=== PATIENT | female | born 1965 | race Caucasian/White ===

== ENCOUNTER 2018-05-10 18:43 | Inpatient (IN) | payer OTHER ==
[2018-05-10 19:48] LABS: ADD MAN DIFF? NO
[2018-05-10 19:51] LABS: WHITE BLOOD COUNT 13.1 10^3/ul (4.8-10.8)
[2018-05-10 19:51] LABS: BASOPHIL # 0.1 10^3/ul (0.0-0.1); BASOPHILS % 0.6 % (0.0-2.0); EOSINOPHILS # 0.1 10^3/ul (0.0-0.5); EOSINOPHILS % 0.8 % (0.0-7.0); HEMATOCRIT 34.6 % (37.0-47.0); HEMOGLOBIN 11.7 g/dl (12.0-16.0); LYMPHOCYTES % 7.9 % (15.0-51.0); MEAN CORPUSCULAR HGB CONC 33.8 g/dl (32.0-37.0); MEAN CORPUSCULAR VOLUME 85.6 fl (82.0-101.0); MEAN PLATELET VOLUME 9.9 fl (7.4-10.4); MONOCYTE # 0.9 10^3/ul (0.3-0.9); MONOCYTES % 6.9 % (0.0-11.0); NEUTROPHIL # 10.9 10^3/ul (1.6-7.5); NEUTROPHILS % 83.3 % (39.0-77.0); PLATELET COUNT 312 10^3/UL (140-415); RED BLOOD COUNT 4.04 10^6/ul (4.20-5.40); RED CELL DISTRIBUTION WIDTH 12.5 % (11.5-14.5)
[2018-05-10 20:16] LABS: ANION GAP 13 (8-16); BLOOD UREA NITROGEN 11 mg/dl (7-20); CALCIUM 8.6 mg/dl (8.4-10.2); CARBON DIOXIDE 20 mmol/L (21-31); CHLORIDE 98 mmol/L (97-110); CREATININE 0.63 mg/dl (0.44-1.00); POTASSIUM 4.4 mmol/L (3.5-5.1); SODIUM 127 mmol/L (135-144)
[2018-05-10 20:24] LABS: GLUCOSE 526 mg/dl (70-220)
[2018-05-10] MEDS: HYDROCODONE/APAP (5/325) TAB PO (21:00)
[2018-05-10] MEDS: CLINDAMYCIN 900 MG/D5W (PMX) 50 ML IVPB (21:09)
[2018-05-10] MEDS: SOD CHLORIDE 0.9% 1,000 ML IV ×2 (21:11→21:36)
[2018-05-10] MEDS ORDERED: GLUCOSE GEL 15 GRAM TUBE PO ×2 (22:00)
[2018-05-10] MEDS ORDERED: GLUCOSE GEL 15 GRAM TUBE BUCCAL (22:00)
[2018-05-10] MEDS ORDERED: GLUCAGON 1 MG INJ IM (22:00)
[2018-05-10] MEDS ORDERED: DEXTROSE 50% 50 ML SYRINGE IV ×2 (22:00)
[2018-05-10] MEDS: INSULIN GLARGINE [LANTus] (100 UNITS/ML) SYG SC (23:10)
[2018-05-11] MEDS ORDERED: ONDANSETRON 4 MG INJ IV (01:00)
[2018-05-11] MEDS ORDERED: ACETAMINOPHEN 325 MG TAB PO (01:00)
[2018-05-11] MEDS ORDERED: VANCOMYCIN IV PER PHARMACY XX (01:00)
[2018-05-11] MEDS: SOD CHLORIDE 0.9% 1,000 ML IV ×2 (01:56→20:41)
[2018-05-11] MEDS: VANCOMYCIN 1.25 GM in SOD CHLORIDE 0.9% 250 ML IVPB (04:07)
[2018-05-11 05:31] LABS: ADD MAN DIFF? NO
[2018-05-11] MEDS: INSULIN ASPART [NOVOLOG] 3 ML PEN SC ×4 (05:34→17:39)
[2018-05-11 05:37] LABS: BASOPHIL # 0.1 10^3/ul (0.0-0.1); BASOPHILS % 0.6 % (0.0-2.0); EOSINOPHILS # 0.1 10^3/ul (0.0-0.5); EOSINOPHILS % 1.6 % (0.0-7.0); HEMATOCRIT 30.8 % (37.0-47.0); HEMOGLOBIN 10.6 g/dl (12.0-16.0); LYMPHOCYTES # 1.2 10^3/ul (0.8-2.9); MEAN CORPUSCULAR HEMOGLOBIN 29.4 pg (29.0-33.0); MEAN CORPUSCULAR HGB CONC 34.4 g/dl (32.0-37.0); MEAN CORPUSCULAR VOLUME 85.6 fl (82.0-101.0); MONOCYTE # 0.6 10^3/ul (0.3-0.9); MONOCYTES % 7.1 % (0.0-11.0); NEUTROPHIL # 6.7 10^3/ul (1.6-7.5); NEUTROPHILS % 76.2 % (39.0-77.0); PLATELET COUNT 292 10^3/UL (140-415); RED CELL DISTRIBUTION WIDTH 12.4 % (11.5-14.5)
[2018-05-11 05:37] LABS: WHITE BLOOD COUNT 8.7 10^3/ul (4.8-10.8)
[2018-05-11 06:10] LABS: ALANINE AMINOTRANSFERASE 14 IU/L (13-69); ALBUMIN 3.1 g/dl (3.3-4.9); ALBUMIN/GLOBULIN RATIO 1.03; ALKALINE PHOSPHATASE 69 IU/L (42-121); ANION GAP 11 (8-16); ASPARTATE AMINO TRANSFERASE 14 IU/L (15-46); BILIRUBIN,INDIRECT 0.4 mg/dl (0-1.1); BILIRUBIN,TOTAL 0.4 mg/dl (0.2-1.3); BLOOD UREA NITROGEN 9 mg/dl (7-20); CALCIUM 7.9 mg/dl (8.4-10.2); CARBON DIOXIDE 21 mmol/L (21-31); CHLORIDE 104 mmol/L (97-110); CREATININE 0.53 mg/dl (0.44-1.00); GLUCOSE 349 mg/dl (70-220); POTASSIUM 4.1 mmol/L (3.5-5.1); SODIUM 132 mmol/L (135-144); TOTAL PROTEIN 6.1 g/dl (6.1-8.1)
[2018-05-11] MEDS: PIPER-TAZO 3.375 GM IV (PMX) 100 ML IVPB ×3 (07:50→18:50)
[2018-05-11] MEDS ORDERED: BISACODYL 10 MG SUPP PR (11:30)
[2018-05-11] MEDS: DOCUSATE SODIUM 250 MG CAP PO (12:47)
[2018-05-11] MEDS: ENOXAPARIN 40 MG/0.4 ML SYG SC (12:49)
[2018-05-11] MEDS: VANCOMYCIN 1 GM 250 ML IVPB (16:28)
[2018-05-11] MEDS: Insulin NOVOLOG SS MILD Algorithm (SS with meals and bedtime) SC ×2 (17:38→20:40)
[2018-05-11] MEDS ORDERED: INSULIN ASPART [NOVOLOG] 3 ML PEN SC (18:05)
[2018-05-11] MEDS: INSULIN GLARGINE [LANTus] (100 UNITS/ML) SYG SC (20:40)
[2018-05-11] MEDS ORDERED: INSULIN GLARGINE [LANTus] (100 UNITS/ML) SYG SC (21:00)
[2018-05-12] MEDS: PIPER-TAZO 3.375 GM IV (PMX) 100 ML IVPB ×5 (00:35→23:30)
[2018-05-12] MEDS: ACCU-CHEK XX (02:00)
[2018-05-12] MEDS: VANCOMYCIN 1 GM 250 ML IVPB ×2 (03:18→16:07)
[2018-05-12] MEDS: PANTOPRAZOLE (EC) 40 MG TAB PO (05:24)
[2018-05-12] MEDS: SOD CHLORIDE 0.9% 1,000 ML IV ×2 (05:36→13:51)
[2018-05-12 06:42] LABS: ADD MAN DIFF? NO
[2018-05-12 06:47] LABS: BASOPHILS % 0.5 % (0.0-2.0); EOSINOPHILS # 0.3 10^3/ul (0.0-0.5); EOSINOPHILS % 3.3 % (0.0-7.0); HEMATOCRIT 30.1 % (37.0-47.0); HEMOGLOBIN 9.8 g/dl (12.0-16.0); LYMPHOCYTES # 2.2 10^3/ul (0.8-2.9); LYMPHOCYTES % 27.6 % (15.0-51.0); MEAN CORPUSCULAR HEMOGLOBIN 28.7 pg (29.0-33.0); MEAN CORPUSCULAR HGB CONC 32.6 g/dl (32.0-37.0); MEAN CORPUSCULAR VOLUME 88.3 fl (82.0-101.0); MEAN PLATELET VOLUME 9.8 fl (7.4-10.4); MONOCYTE # 0.8 10^3/ul (0.3-0.9); MONOCYTES % 9.8 % (0.0-11.0); NEUTROPHIL # 4.5 10^3/ul (1.6-7.5); NEUTROPHILS % 58.3 % (39.0-77.0); PLATELET COUNT 269 10^3/UL (140-415); RED BLOOD COUNT 3.41 10^6/ul (4.20-5.40); RED CELL DISTRIBUTION WIDTH 12.8 % (11.5-14.5)
[2018-05-12 06:47] LABS: WHITE BLOOD COUNT 7.8 10^3/ul (4.8-10.8)
[2018-05-12 07:17] LABS: ANION GAP 9 (8-16); BLOOD UREA NITROGEN 13 mg/dl (7-20); CALCIUM 7.7 mg/dl (8.4-10.2); CARBON DIOXIDE 22 mmol/L (21-31); CHLORIDE 107 mmol/L (97-110); GLUCOSE 284 mg/dl (70-220); POTASSIUM 4.3 mmol/L (3.5-5.1); SODIUM 134 mmol/L (135-144)
[2018-05-12] MEDS: DOCUSATE SODIUM 250 MG CAP PO (08:19)
[2018-05-12] MEDS: Insulin NOVOLOG SS MILD Algorithm (SS with meals and bedtime) SC ×2 (08:20→12:37)
[2018-05-12] MEDS: ENOXAPARIN 40 MG/0.4 ML SYG SC (08:21)
[2018-05-12] MEDS: INSULIN ASPART [NOVOLOG] 3 ML PEN SC ×5 (08:21→20:40)
[2018-05-12 15:40] LABS: VANCOMYCIN,TROUGH 8.9 ug/ml (10.0-20.0)
[2018-05-12] MEDS ORDERED: PENDING SANTYL ORDER FOR WOUND CARE XX (16:00)
[2018-05-12] MEDS ORDERED: COLLAGENASE 5 GM (UD JAR) TOP (16:00)
[2018-05-12] MEDS: COLLAGENASE 5 GM (UD JAR) TOP (16:07)
[2018-05-12] MEDS ORDERED: INSULIN ASPART [NOVOLOG] 3 ML PEN SC (18:05)
[2018-05-12] MEDS: INSULIN GLARGINE [LANTus] (100 UNITS/ML) SYG SC (20:39)
[2018-05-13] MEDS: ACCU-CHEK XX (02:45)
[2018-05-13] MEDS: VANCOMYCIN 1.25 GM in SOD CHLORIDE 0.9% 250 ML IVPB ×2 (05:06→15:49)
[2018-05-13] MEDS: PANTOPRAZOLE (EC) 40 MG TAB PO (05:17)
[2018-05-13] MEDS: PIPER-TAZO 3.375 GM IV (PMX) 100 ML IVPB ×3 (06:09→21:37)
[2018-05-13] MEDS: INSULIN ASPART [NOVOLOG] 3 ML PEN SC ×7 (08:10→20:47)
[2018-05-13] MEDS: ENOXAPARIN 40 MG/0.4 ML SYG SC (08:10)
[2018-05-13] MEDS: COLLAGENASE 5 GM (UD JAR) TOP (08:11)
[2018-05-13] MEDS: DOCUSATE SODIUM 250 MG CAP PO (08:11)
[2018-05-13] MEDS ORDERED: MAGNESIUM HYDROXIDE 30ML CUP PO (16:30)
[2018-05-13] MEDS: INSULIN GLARGINE [LANTus] (100 UNITS/ML) SYG SC (20:48)
[2018-05-14] MEDS: ACCU-CHEK XX (02:00)
[2018-05-14] MEDS: hydrALAzine 20 MG INJ IV (02:37)
[2018-05-14] MEDS: VANCOMYCIN 1.25 GM in SOD CHLORIDE 0.9% 250 ML IVPB ×2 (03:32→16:40)
[2018-05-14] MEDS: PANTOPRAZOLE (EC) 40 MG TAB PO (06:24)
[2018-05-14] MEDS: PIPER-TAZO 3.375 GM IV (PMX) 100 ML IVPB ×2 (06:35→14:17)
[2018-05-14 06:52] LABS: ANION GAP 13 (8-16); BLOOD UREA NITROGEN 15 mg/dl (7-20); CALCIUM 8.6 mg/dl (8.4-10.2); CARBON DIOXIDE 23 mmol/L (21-31); CHLORIDE 105 mmol/L (97-110); CREATININE 0.52 mg/dl (0.44-1.00); GLUCOSE 294 mg/dl (70-220); SODIUM 137 mmol/L (135-144)
[2018-05-14] MEDS: INSULIN ASPART [NOVOLOG] 3 ML PEN SC ×7 (08:04→21:00)
[2018-05-14] MEDS: DOCUSATE SODIUM 250 MG CAP PO (08:34)
[2018-05-14] MEDS: ENOXAPARIN 40 MG/0.4 ML SYG SC (08:35)
[2018-05-14] MEDS: COLLAGENASE 5 GM (UD JAR) TOP (08:38)
[2018-05-14] MEDS: AMLODIPINE 10 MG TAB PO (08:38)
[2018-05-14] MEDS: CEFTRIAXONE 1 GM/50 ML (PMX) 50 ML IVPB (15:50)
[2018-05-14] MEDS ORDERED: LORAZEPAM 0.5 MG TAB PO (17:00)
[2018-05-14] MEDS: INSULIN GLARGINE [LANTus] (100 UNITS/ML) SYG SC (21:27)
[2018-05-15] MEDS: ACCU-CHEK XX (02:00)
[2018-05-15] MEDS: VANCOMYCIN 1 GM 250 ML IVPB ×2 (06:11→17:29)
[2018-05-15] MEDS: PANTOPRAZOLE (EC) 40 MG TAB PO (06:12)
[2018-05-15] MEDS: COLLAGENASE 5 GM (UD JAR) TOP (08:20)
[2018-05-15] MEDS: INSULIN ASPART [NOVOLOG] 3 ML PEN SC ×7 (08:21→20:20)
[2018-05-15] MEDS: ENOXAPARIN 40 MG/0.4 ML SYG SC (08:23)
[2018-05-15] MEDS: DOCUSATE SODIUM 250 MG CAP PO (08:23)
[2018-05-15] MEDS: AMLODIPINE 10 MG TAB PO (08:37)
[2018-05-15] MEDS: CEFTRIAXONE 1 GM/50 ML (PMX) 50 ML IVPB (15:31)
[2018-05-15] MEDS ORDERED: LIDOCAINE 1% (MPF) 5 ML VIAL SC (17:00)
[2018-05-15] MEDS: INSULIN GLARGINE [LANTus] (100 UNITS/ML) SYG SC (20:26)
[2018-05-15] MEDS: hydrALAzine 20 MG INJ IV (21:42)
[2018-05-16] MEDS: ACCU-CHEK XX (01:11)
[2018-05-16] MEDS: VANCOMYCIN 1 GM 250 ML IVPB ×2 (05:30→18:00)
[2018-05-16] MEDS: PANTOPRAZOLE (EC) 40 MG TAB PO (05:30)
[2018-05-16] MEDS: INSULIN ASPART [NOVOLOG] 3 ML PEN SC ×7 (08:03→20:18)
[2018-05-16] MEDS: COLLAGENASE 5 GM (UD JAR) TOP (08:04)
[2018-05-16] MEDS: ENOXAPARIN 40 MG/0.4 ML SYG SC (08:04)
[2018-05-16] MEDS: DOCUSATE SODIUM 250 MG CAP PO (08:05)
[2018-05-16] MEDS: AMLODIPINE 10 MG TAB PO (08:06)
[2018-05-16] MEDS: LINAGLIPTIN 5 MG TABLET PO (12:12)
[2018-05-16] MEDS: CEFTRIAXONE 1 GM/50 ML (PMX) 50 ML IVPB (14:59)
[2018-05-16 17:38] LABS: VANCOMYCIN,TROUGH 23.9 ug/ml (10.0-20.0)
[2018-05-16] MEDS: INSULIN GLARGINE [LANTus] (100 UNITS/ML) SYG SC (20:20)
[2018-05-17] MEDS: VANCOMYCIN 500MG/NS (PMX) 100 ML IVPB (01:00)
[2018-05-17] MEDS: ACCU-CHEK XX (01:03)
[2018-05-17 05:20] LABS: ADD MAN DIFF? NO
[2018-05-17 05:21] LABS: BASOPHIL # 0.1 10^3/ul (0.0-0.1); BASOPHILS % 0.7 % (0.0-2.0); EOSINOPHILS # 0.3 10^3/ul (0.0-0.5); EOSINOPHILS % 3.7 % (0.0-7.0); HEMATOCRIT 30.9 % (37.0-47.0); HEMOGLOBIN 10.1 g/dl (12.0-16.0); IMMATURE GRANS #M 0.05 10^3/ul; IMMATURE GRANS % (M) 0.6 %; LYMPHOCYTES # 1.6 10^3/ul (0.8-2.9); LYMPHOCYTES % 18.3 % (15.0-51.0); MEAN CORPUSCULAR HGB CONC 32.7 g/dl (32.0-37.0); MEAN CORPUSCULAR VOLUME 88.8 fl (82.0-101.0); MEAN PLATELET VOLUME 9.4 fl (7.4-10.4); MONOCYTE # 0.7 10^3/ul (0.3-0.9); NEUTROPHIL # 6.2 10^3/ul (1.6-7.5); NEUTROPHILS % 68.7 % (39.0-77.0); PLATELET COUNT 323 10^3/UL (140-415); RED BLOOD COUNT 3.48 10^6/ul (4.20-5.40); RED CELL DISTRIBUTION WIDTH 13.1 % (11.5-14.5)
[2018-05-17 05:55] LABS: ANION GAP 12 (8-16); BLOOD UREA NITROGEN 28 mg/dl (7-20); CALCIUM 8.8 mg/dl (8.4-10.2); CARBON DIOXIDE 23 mmol/L (21-31); CHLORIDE 109 mmol/L (97-110); CREATININE 0.93 mg/dl (0.44-1.00); GLUCOSE 162 mg/dl (70-220); POTASSIUM 3.8 mmol/L (3.5-5.1); SODIUM 140 mmol/L (135-144)
[2018-05-17] MEDS: PANTOPRAZOLE (EC) 40 MG TAB PO (06:06)
[2018-05-17] MEDS: LINAGLIPTIN 5 MG TABLET PO (08:26)
[2018-05-17] MEDS: DOCUSATE SODIUM 250 MG CAP PO (08:26)
[2018-05-17] MEDS: COLLAGENASE 5 GM (UD JAR) TOP (08:26)
[2018-05-17] MEDS: ENOXAPARIN 40 MG/0.4 ML SYG SC (08:27)
[2018-05-17] MEDS: INSULIN ASPART [NOVOLOG] 3 ML PEN SC ×7 (08:29→21:46)
[2018-05-17] MEDS: AMLODIPINE 10 MG TAB PO (08:30)
[2018-05-17] MEDS: CEFTRIAXONE 1 GM/50 ML (PMX) 50 ML IVPB (14:57)
[2018-05-17] MEDS: VANCOMYCIN 1.25 GM in SOD CHLORIDE 0.9% 250 ML IVPB (16:16)
[2018-05-17] MEDS: INSULIN GLARGINE [LANTus] (100 UNITS/ML) SYG SC (21:47)
[2018-05-18] MEDS: ACCU-CHEK XX (02:00)
[2018-05-18] MEDS: PANTOPRAZOLE (EC) 40 MG TAB PO (05:18)
[2018-05-18] MEDS: INSULIN ASPART [NOVOLOG] 3 ML PEN SC ×7 (09:25→20:30)
[2018-05-18] MEDS: ENOXAPARIN 40 MG/0.4 ML SYG SC (09:27)
[2018-05-18] MEDS: LINAGLIPTIN 5 MG TABLET PO (09:36)
[2018-05-18] MEDS: DOCUSATE SODIUM 250 MG CAP PO (09:36)
[2018-05-18] MEDS: AMLODIPINE 10 MG TAB PO (09:37)
[2018-05-18] MEDS: COLLAGENASE 5 GM (UD JAR) TOP (09:37)
[2018-05-18] MEDS: CEFTRIAXONE 1 GM/50 ML (PMX) 50 ML IVPB (15:23)
[2018-05-18] MEDS: VANCOMYCIN 1.25 GM in SOD CHLORIDE 0.9% 250 ML IVPB (17:11)
[2018-05-18] MEDS: INSULIN GLARGINE [LANTus] (100 UNITS/ML) SYG SC (20:34)
== END 2018-05-19 | disposition home or self-care (01) | DRG 920 ==
LOC: E/R 18:43 → PP2 20:35
PROC: 02H633Z Insertion of Infusion Device into Right Atrium, Percutaneous Approach (ICD-10-PCS; principal; 2018-05-16)
PROC: B244ZZZ Ultrasonography of Right Heart (ICD-10-PCS; 2018-05-16)
DX: T81.89XA Other complications of procedures, not elsewhere classified, initial encounter (principal); E87.1 Hypo-osmolality and hyponatremia; R65.10 Systemic inflammatory response syndrome (SIRS) of non-infectious origin without acute organ dysfunction; L97.413 Non-pressure chronic ulcer of right heel and midfoot with necrosis of muscle; L03.115 Cellulitis of right lower limb; K59.00 Constipation, unspecified; E11.42 Type 2 diabetes mellitus with diabetic polyneuropathy; E11.51 Type 2 diabetes mellitus with diabetic peripheral angiopathy without gangrene; E11.621 Type 2 diabetes mellitus with foot ulcer; E11.65 Type 2 diabetes mellitus with hyperglycemia; I73.9 Peripheral vascular disease, unspecified; B95.4 Other streptococcus as the cause of diseases classified elsewhere; B95.61 Methicillin susceptible Staphylococcus aureus infection as the cause of diseases classified elsewhere; Z79.4 Long term (current) use of insulin; Z91.14 Patient's other noncompliance with medication regimen; Z89.431 Acquired absence of right foot; Z89.421 Acquired absence of other right toe(s); Z87.891 Personal history of nicotine dependence
CPT/HCPCS: 36569; 71045; 73718; 76937; 80048; 80053; 80202; 82962; 83036; 85025; 99285-25